=== PATIENT | male | born 1965 | race Caucasian/White ===

== ENCOUNTER 2017-09-05 19:04 | Emergency (ER) | payer OTHER ==
[~2017-09-05] VITALS: Ht 170.2 cm; Wt 61.2 kg
[~2017-09-05 19:04] MED LIST: ALBUTEROL INHAL17 GM IH; AZITHROMYCIN 2250 MG PO; FLEXERIL PO; IBUPROFEN 800800 MG PO; NOHOMEMEDICATIONS; NORCO 5-325 TA1 EACH PO; PREDNISONE 20 M20 MG PO; ZOFRAN4 MG PO
[2017-09-05 19:12] VITALS: BP 141/72
[2017-09-05] MEDS ORDERED: NAPROSYN500 MG PO (19:46)
[2017-09-05] MEDS ORDERED: HYDROCODONE-AP1 EAC6 PO (19:46)
[2017-09-05] MEDS ORDERED: MEDROLDOSEPACK PO (19:46)
== END 2017-09-05 19:54 | disposition home or self-care (01) ==
LOC: M.ERS 19:04
DX: M54.5 Low back pain (principal); F17.200 Nicotine dependence, unspecified, uncomplicated; F10.99 Alcohol use, unspecified with unspecified alcohol-induced disorder

== ENCOUNTER 2018-09-27 12:15 | Emergency (ER) | payer OTHER ==
[~2018-09-27] VITALS: Ht 170.2 cm; Wt 61.2 kg
[~2018-09-27 12:15] MED LIST changes: +HYDROCODONE-AP1 EAC6 PO; +MEDROLDOSEPACK PO; +NAPROSYN500 MG PO
[2018-09-27] MEDS ORDERED: BACTRIM DS TAB1 EACH PO (13:57)
[2018-09-27] MEDS ORDERED: MOBIC15 MG PO (13:57)
[2018-09-27 14:12] VITALS: BP 160/97
== END 2018-09-27 14:12 | disposition home or self-care (01) ==
LOC: M.ERS 12:15
DX: L03.012 Cellulitis of left finger (principal); F17.200 Nicotine dependence, unspecified, uncomplicated

== ENCOUNTER 2018-11-09 14:03 | Emergency (ER) | payer OTHER ==
[~2018-11-09] VITALS: Ht 170.2 cm; Wt 63.5 kg
[~2018-11-09 14:03] MED LIST changes: +BACTRIM DS TAB1 EACH PO; +MOBIC15 MG PO
[2018-11-09] MEDS ORDERED: NORCO 5-325 TA1 EACH PO (15:40)
[2018-11-09] MEDS ORDERED: IBUPROFEN 800800 M1 PO (15:41)
[2018-11-09] MEDS ORDERED: AUGMENTIN 875-1 EACH PO (15:41)
[2018-11-09 16:02] VITALS: BP 175/91
== END 2018-11-09 16:03 | disposition home or self-care (01) ==
LOC: M.ERS 14:03
DX: S02.31XA Fracture of orbital floor, right side, initial encounter for closed fracture (principal); F17.200 Nicotine dependence, unspecified, uncomplicated; W22.8XXA Striking against or struck by other objects, initial encounter; Y93.89 Activity, other specified; Y92.89 Other specified places as the place of occurrence of the external cause; Y99.8 Other external cause status

== ENCOUNTER 2020-12-18 12:36 | Emergency (ER) | payer OTHER ==
[~2020-12-18] VITALS: Ht 170.2 cm; Wt 74.8 kg
[~2020-12-18 12:36] MED LIST changes: +AUGMENTIN 875-1 EACH PO; +IBUPROFEN 800800 M1 PO
[2020-12-18 13:38] LABS: ABSOLUTE BASOPHILS 0.2 thou/uL (0.0-0.2); ABSOLUTE EOSINOPHILS 0.2 thou/uL (0.0-0.7); ABSOLUTE LYMPHOCYTES 1.5 thou/uL (0.8-5.3); ABSOLUTE MONOCYTES 0.9 thou/uL (0.0-1.2); ABSOLUTE NEUTROPHILS 7.8 thou/uL (1.6-8.1); BASOPHILS 1.5 %; EOSINOPHILS 1.8 %; HEMATOCRIT 41.7 % (42.0-52.0); LYMPHOCYTES 14.3 %; MCH 29.7 pg (26.0-34.0); MCHC 33.6 g/dL (28.0-37.0); MCV 88.4 fL (80.0-100.0); MONOCYTES 8.5 %; MPV 7.9 fl. (7.2-11.1); NUCLEATED RBCS 0 /100WBC; PLATELET COUNT* 368 thou/uL (150-400); POLYS 73.9 %; RBC 4.72 mil/uL (4.50-6.00); WBC 10.5 thou/uL (4.0-11.0)
[2020-12-18] MEDS ORDERED: BACTRIM DS TAB1 EACH PO (13:43)
[2020-12-18] MEDS ORDERED: KEFLEX500 M1 PO (13:43)
[2020-12-18] MEDS ORDERED: IBUPROFEN 800800 M1 PO (13:43)
[2020-12-18] MEDS ORDERED: HYDROCODON-ACE1 EAC7 PO (13:45)
[2020-12-18 13:47] LABS: POTASSIUM 3.8 mmol/L (3.5-5.1)
[2020-12-18 13:52] LABS: ALBUMIN 3.9 g/dL (3.4-5.0); TOTAL BILIRUBIN 0.3 mg/dL (<0.1-1.0); TOTAL PROTEIN 7.9 g/dL (6.4-8.2)
[2020-12-18 13:55] VITALS: BP 136/79
== END 2020-12-18 13:57 | disposition home or self-care (01) ==
LOC: M.ERS 12:36
PROVIDERS: Nurse Practitioner Family
DX: S30.817A Abrasion of anus, initial encounter (principal); S30.813A Abrasion of scrotum and testes, initial encounter; G96.191 Perineural cyst; L02.215 Cutaneous abscess of perineum; F17.210 Nicotine dependence, cigarettes, uncomplicated; X58.XXXA Exposure to other specified factors, initial encounter; Y93.89 Activity, other specified; Y92.89 Other specified places as the place of occurrence of the external cause; Y99.8 Other external cause status

== ENCOUNTER 2021-01-16 06:56 | Emergency (ER) | payer OTHER ==
[~2021-01-16] VITALS: Ht 170.2 cm; Wt 63.5 kg
[~2021-01-16 06:56] MED LIST changes: +HYDROCODON-ACE1 EAC7 PO; +KEFLEX500 M1 PO
[2021-01-16] MEDS ORDERED: HYDROCODON-ACE1 EAC7 PO (08:11)
[2021-01-16] MEDS ORDERED: CEPHALEXIN500 MG PO (08:11)
[2021-01-16] MEDS ORDERED: BACTRIM DS TAB1 EACH PO (08:11)
[2021-01-16 08:21] VITALS: BP 159/96
== END 2021-01-16 08:21 | disposition home or self-care (01) ==
LOC: M.ERS 06:56
DX: S31.819A Unspecified open wound of right buttock, initial encounter (principal); A49.02 Methicillin resistant Staphylococcus aureus infection, unspecified site; X58.XXXA Exposure to other specified factors, initial encounter; Y93.9 Activity, unspecified; Y92.89 Other specified places as the place of occurrence of the external cause; Y99.8 Other external cause status

== ENCOUNTER 2021-10-21 09:47 | Emergency (ER) | payer OTHER ==
[~2021-10-21] VITALS: Ht 170.2 cm; Wt 61.2 kg
[~2021-10-21 09:47] MED LIST changes: +CEPHALEXIN500 MG PO
[2021-10-21 11:07] LABS: ABSOLUTE BASOPHILS 0.1 thou/uL (0.0-0.2); ABSOLUTE EOSINOPHILS 0.1 thou/uL (0.0-0.7); ABSOLUTE LYMPHOCYTES 1.3 thou/uL (0.8-5.3); ABSOLUTE MONOCYTES 0.8 thou/uL (0.0-1.2); ABSOLUTE NEUTROPHILS 10.9 thou/uL (1.6-8.1); BASOPHILS 0.6 %; EOSINOPHILS 0.8 %; HEMATOCRIT 40.5 % (42.0-52.0); HEMOGLOBIN 13.4 gm/dL (14.0-18.0); LYMPHOCYTES 9.9 %; MCH 29.4 pg (26.0-34.0); MCHC 33.1 g/dL (28.0-37.0); MCV 88.9 fL (80.0-100.0); MONOCYTES 6.2 %; MPV 7.8 fl. (7.2-11.1); NUCLEATED RBCS 0 /100WBC; PLATELET COUNT* 309 thou/uL (150-400); POLYS 82.5 %; RBC 4.56 mil/uL (4.50-6.00); RDW-CV 14.3 % (10.5-14.5); WBC 13.2 thou/uL (4.0-11.0)
[2021-10-21 11:21] LABS: CALCIUM 8.9 mg/dL (8.5-10.1); CREATININE 1.1 mg/dL (0.6-1.3)
[2021-10-21 11:26] LABS: ALBUMIN 3.7 g/dL (3.4-5.0); TOTAL BILIRUBIN 0.2 mg/dL (<0.1-1.0); TOTAL PROTEIN 7.5 g/dL (6.4-8.2)
[2021-10-21 11:42] LABS: URINE BILIRUBIN NEGATIVE (Negative); URINE BLOOD TRACE (Negative); URINE CLARITY CLEAR; URINE COLOR YELLOW; URINE GLUCOSE-RANDOM NEGATIVE (Negative); URINE KETONES NEGATIVE (Negative); URINE LEUKOCYTES-REFLEX NEGATIVE (Negative); URINE NITRITE-REFLEX NEGATIVE (Negative); URINE PROTEIN NEGATIVE (Negative); URINE SPECIFIC GRAVITY >= 1.030 (1.005-1.030); URINE UROBILINOGEN 0.2 E.U./dl (0.2-1.0)
[2021-10-21] MEDS ORDERED: DOXYCYCLINE 10100 MG PO (11:51)
[2021-10-21] MEDS ORDERED: CEPHALEXIN500 MG PO (11:51)
[2021-10-21 12:00] VITALS: BP 137/79
== END 2021-10-21 12:00 | disposition home or self-care (01) ==
LOC: M.ERS 09:47
PROVIDERS: Student in an Organized Health Care Education/Training Program
DX: N49.2 Inflammatory disorders of scrotum (principal); Z98.890 Other specified postprocedural states